=== PATIENT | male | born 1930 | race Caucasian/White ===

== ENCOUNTER → 2016-10-12 | Outpatient (CLI) | payer MEDICARE | LOC: GMAH 17:39 | PROVIDERS: ATTEND Family Medicine | DX: R06.02 Shortness of breath (principal) ==

== ENCOUNTER → 2018-12-04 | Outpatient (CLI) | payer MEDICARE | LOC: YCHH 11:14 | PROVIDERS: ATTEND Family Medicine | DX: I50.9 Heart failure, unspecified (principal); E10.9 Type 1 diabetes mellitus without complications; N18.9 Chronic kidney disease, unspecified; E78.5 Hyperlipidemia, unspecified; I48.0 Paroxysmal atrial fibrillation; N39.0 Urinary tract infection, site not specified; E64.9 Sequelae of unspecified nutritional deficiency ==

== ENCOUNTER → 2019-06-20 | Outpatient (CLI) | payer MEDICARE | LOC: GMA MATASK 11:00 | PROVIDERS: ATTEND Family Medicine | DX: E78.5 Hyperlipidemia, unspecified (principal); K74.60 Unspecified cirrhosis of liver ==

== ENCOUNTER 2019-10-04 12:37 | Emergency (ER) | payer MEDICARE ==
--- NOTE | 2019-10-04 13:09 | ED.PDOC ---
History of Present Illness - General Chief Complaint: General Stated Complaint: General ill feeling Time Seen by Provider: 10/04/19 12:52 Source: patient Exam Limitations: no limitations - History of Present Illness Initial Comments: 88yo M with PMH sig for CAD, HTN, who presents from PCP office for EKG findings. Pt denies any sx. Daughter states she took him to see PCP this am because he woke up early, because he is a night owl normally, and was complaining on headache. Pt states he has been having headaches intermittently, this is nothing out of the normal, mild, resolved at this time. States he "feels pretty good!" Had an episode of "dizziness" though unable to remember if it was dizziness or lightheadedness, around Thanksgiving that caused a fall with head trauma, no LOC, family thinks he suffered a concussion. Pt denies f/c, RAM, change in vision, cough, congestion, CP, SOB, abd pain, n/v/d, edema, urinary sx, back pain, neck pain, weakness, numbness, body aches. No sick contacts, no recent travel. From office states he has headache, dizziness, fatigue, palpitations, weakness with hx of a fiband stents, EKG showed sinus with PVC's. Allergies/Adverse Reactions: Allergies NO KNOWN ALLERGY Allergy (Verified 10/04/19 12:53) Home Medications: Ambulatory Orders Lisinopril 10 mg PO DAILY 10/04/19 Metoprolol Tartrate 25 mg PO DAILY 10/04/19 Review of Systems - Review of Systems Constitutional: States: no symptoms reported. Denies: chills, fever EENTM: States: no symptoms reported. Denies: blurred vision, double vision, nose congestion, throat pain Respiratory: States: no symptoms reported. Denies: cough, orthopnea, short of breath, stridor, wheezing Cardiology: States: no symptoms reported. Denies: chest pain, edema, palpitations, syncope Gastrointestinal/Abdominal: States: no symptoms reported. Denies: abdominal pain, constipation, diarrhea, nausea, vomiting Genitourinary: States: no symptoms reported. Denies: dysuria, frequency, hematuria Musculoskeletal: States: no symptoms reported. Denies: back pain, neck pain Skin: States: no symptoms reported. Denies: lesions, rash Neurological: States: headache - resolved. Denies: numbness, weakness Past Medical History (General) - Patient Medical History Hx Stroke: No Hx Cardiac Disorders: Yes Hx Congestive Heart Failure: No Hx Hypertension: Yes Hx Diabetes: No Hx Cancer: Yes Hx MRSA: No MRSA Source:: Wound Surgical History: no surgical history - Vaccination History Hx Influenza Vaccination: Yes - 2019 Hx Pneumococcal Vaccination: Yes - 2019 - Social History Hx Tobacco Use: Yes Hx Alcohol Use: No Hx Substance Use: No Hx Substance Use Treatment: No Hx Depression: Yes - Female History Patient : No Family Medical History - Family History Mother Family History: Unknown Living Status: Unknown Physical Exam - Physical Exam General Appearance: Alert, Comfortable, No apparent distress, Well Developed, Well Nourished Eye Exam: bilateral normal Ears, Nose, Throat: hearing grossly normal, normal ENT inspection, normal pharynx Neck: non-tender, full range of motion, supple, normal inspection Respiratory: chest non-tender, lungs clear, normal breath sounds, no respiratory distress, no accessory muscle use Cardiovascular/Chest: normal peripheral pulses, regular rate, rhythm, no edema, no gallop, no JVD, no murmur Peripheral Pulses: radial,right: 2+, radial,left: 2+ Gastrointestinal/Abdominal: non tender, soft, no organomegaly, no pulsatile mass Back Exam: normal inspection, no CVA tenderness, no vertebral tenderness Extremity: normal range of motion, non-tender, normal inspection, no pedal edema, no calf tenderness, normal capillary refill Neurologic: job hand II-XII nml as tested, no motor/sensory deficits, alert, normal mood/affect, oriented x 3, other - Normal cerebellar testing Skin Exam: normal color, warm/dry Progress - Progress Progress: 10/04/19 14:40 Updated pt and family, awaiting UA, will repeat trop. 10/04/19 16:15 I have explained and reviewed all results with the pt. Pt is asymptomatic, has been asking to go home the entire time he has been here. I explained that emergent conditions may arise and to return to the ER for new, worsening, or any persistent conditions. I've explained the importance of f/u for recheck. All questions and concerns addressed at this time. Pt understands and agrees with plan. Pt well appearing, NAD, neuro intact, is stable for discharge. Steffany Sullivan MD Emergency Medicine Physician Billing Number [id number] - Results/Orders Results/Orders: 10/04/19 13:00 EKG STAT Laboratory Results - last 24 hr 10/04/19 10/04/19 10/04/19 13:00 13:05 13:05 WBC 8.3 RBC 4.92 Hgb 13.8 L Hct 41.6 L MCV 84.5 MCH 28.1 MCHC 33.2 RDW 14.4 Plt Count 307 MPV 8.4 Absolute Neuts (auto) 5.60 Absolute Lymphs (auto) 1.90 Absolute Monos (auto) 0.70 Absolute Eos (auto) 0.10 Absolute Basos (auto) 0.00 Neutrophils % 67.3 Lymphocytes % 22.6 Monocytes % 8.4 Eosinophils % 1.1 Basophils % 0.6 Sodium 136 Potassium 3.5 L Chloride 100 L Carbon Dioxide 27 Anion Gap 12.5 BUN 24 H Creatinine 1.36 H BUN/Creatinine Ratio 17.6 Random Glucose 101 Serum Osmolality 276.1 Calcium 8.5 Phosphorus 3.2 Magnesium 2.3 Total Bilirubin 0.7 AST 21 ALT 16 Alkaline Phosphatase 117 Troponin I Serum Total Protein 7.3 Albumin 3.0 L Globulin 4.3 H Albumin/Globulin Ratio 0.7 L Urine Color Urine Appearance Urine pH Ur Specific [place]on Urine Protein Urine Glucose (UA) Urine Ketones Urine Blood Urine Nitrite Urine Bilirubin Urine Urobilinogen Ur Leukocyte Esterase Urine RBC Urine WBC Ur Epithelial Cells Urine Bacteria 10/04/19 10/04/19 10/04/19 13:05 14:42 15:03 WBC RBC Hgb Hct MCV MCH MCHC RDW Plt Count MPV Absolute Neuts (auto) Absolute Lymphs (auto) Absolute Monos (auto) Absolute Eos (auto) Absolute Basos (auto) Neutrophils % Lymphocytes % Monocytes % Eosinophils % Basophils % Sodium Potassium Chloride Carbon Dioxide Anion Gap BUN Creatinine BUN/Creatinine Ratio Random Glucose Serum Osmolality Calcium Phosphorus Magnesium Total Bilirubin AST ALT Alkaline Phosphatase Troponin I 0.02 < 0.02 Serum Total Protein Albumin Globulin Albumin/Globulin Ratio Urine Color Yellow Urine Appearance Clear Urine pH 5.0 Ur Specific [place]on 1.020 Urine Protein 30 Urine Glucose (UA) Negative Urine Ketones Negative Urine Blood Negative Urine Nitrite Negative Urine Bilirubin Small H Urine Urobilinogen 4.0 H Ur Leukocyte Esterase Negative Urine RBC 0 Urine WBC 0 Ur Epithelial Cells [address] head: EXAM DESCRIPTION: Head CLINICAL HISTORY: remote trauma, ram COMPARISON: None TECHNIQUE: Noncontrast transaxial CT images of the head are obtained from base to vertex. This exam was performed according to our departmental dose- optimization program, which includes automated exposure control, adjustment of the mA and/or kV according to patient size and/or use of iterative reconstruction technique. FINDINGS: The midline structures are not displaced. Sulci are age-appropriate. There are areas of decreased attenuation in the periventricular white matter and the white matter of the centrum semiovale. There is no evidence of mass, mass-effect, hydrocephalus, or acute intracranial hemorrhage. No abnormal extra axial fluid collection is seen. Severe calcifications of the intracranial carotid and vertebral arteries. Bone windows show no evidence of depressed skull fracture. The visualized paranasal sinuses shows mild mucosal thickening in the ethmoid air cells.. IMPRESSION: 1. Age- appropriate atrophy with evidence of old small vessel ischemic type changes seen. 2. No acute abnormality is seen on noncontrast CT of the head. E lectronically signed by: Julio Ortega MD 10/04/2019 1:43 PM DEVELOPMENT EDITOR - [id number] Vital Signs - 24 hr 10/04/19 10/04/19 10/04/19 12:40 13:38 15:00 Temperature 97.6 F 97.6 F Pulse Rate [ 63 61 59 L Apical] Respiratory 24 16 18 Rate Blood Pressure 118/68 147/78 136/71 [Left Arm] O2 Sat by Pulse 96 96 94 L Oximetry - EKG/XRAY/CT EKG: Sinus, no ST T wave changes Comments: Sinus arrhythmia, PVC, Q waves inferiorly Departure - Departure Clinical Impression: PVC (premature ventricular contraction) Headache Qualifiers: Headache type: unspecified Headache chronicity pattern: unspecified pattern Intractability: not intractable Qualified Code(s): R51 - Headache Time of Disposition: 16:10 Disposition: Discharge to Home or Self Care Health Concerns: Condition: stable Departure Forms: ED Discharge - Pt. Copy, Patient Portal Self Enrollment Referrals: Nishant Barnes MD [Primary Care Provider] - 1-5 Days Home Medications: Ambulatory Orders Lisinopril 10 mg PO DAILY 10/04/19 Metoprolol Tartrate 25 mg PO DAILY 10/04/19 Additional Instructions: Follow up: [facility] As needed, if symptoms worsen Your Primary Care Physician Make appointment, three days, for follow up Dr. Russ, cardiology, make appointment three days for follow up
--- NOTE | 2019-10-04 13:44 | CT ---
EXAM DESCRIPTION: Head CLINICAL HISTORY: remote trauma, delvalle COMPARISON: None TECHNIQUE: Noncontrast transaxial CT images of the head are obtained from base to vertex. This exam was performed according to our departmental dose-optimization program, which includes automated exposure control, adjustment of the mA and/or kV according to patient size and/or use of iterative reconstruction technique. FINDINGS: The midline structures are not displaced. Sulci are age-appropriate. There are areas of decreased attenuation in the periventricular white matter and the white matter of the centrum semiovale. There is no evidence of mass, mass-effect, hydrocephalus, or acute intracranial hemorrhage. No abnormal extra axial fluid collection is seen. Severe calcifications of the intracranial carotid and vertebral arteries. Bone windows show no evidence of depressed skull fracture. The visualized paranasal sinuses shows mild mucosal thickening in the ethmoid air cells.. IMPRESSION: 1. Age-appropriate atrophy with evidence of old small vessel ischemic type changes seen. 2. No acute abnormality is seen on noncontrast CT of the head. Electronically signed by: Julio Ortega MD 10/04/2019 1:43 PM [facility]
[2019-10-04] MEDS ORDERED: ACETAMINOPHEN IV 1000MG 1,000 MG in PREMIX BOTTLE 1 BOTTLE IVPB ONE (14:40)
[2019-10-04] MEDS ORDERED: ACETAMINOPHEN IV 1000MG 100 ML ONE (14:55)
[2019-10-04 17:16] VITALS: TEMP 98
[2019-10-04 17:23] VITALS: BP 117/66; O2SAT 94
== END 2019-10-04 16:30 | disposition home or self-care (01) ==
LOC: ER 12:37
DX: R51 Headache (principal); I49.3 Ventricular premature depolarization; I25.10 Atherosclerotic heart disease of native coronary artery without angina pectoris; I10 Essential (primary) hypertension; I51.9 Heart disease, unspecified; F32.9 Major depressive disorder, single episode, unspecified; Z85.9 Personal history of malignant neoplasm, unspecified; Z79.899 Other long term (current) drug therapy; Z87.891 Personal history of nicotine dependence

== ENCOUNTER → 2020-01-16 | Outpatient (CLI) | payer MEDICARE | LOC: YCHH 09:37 | PROVIDERS: ATTEND Family Medicine | DX: R79.89 Other specified abnormal findings of blood chemistry (principal); E78.5 Hyperlipidemia, unspecified; D64.9 Anemia, unspecified; R30.0 Dysuria; E79.0 Hyperuricemia without signs of inflammatory arthritis and tophaceous disease; R97.20 Elevated prostate specific antigen [PSA]; E05.90 Thyrotoxicosis, unspecified without thyrotoxic crisis or storm; E11.9 Type 2 diabetes mellitus without complications; Z12.5 Encounter for screening for malignant neoplasm of prostate | CPT/HCPCS: 80053; 80061; 81001; 83036; 84443; 84550; 85025; G0103 ==